=== PATIENT | female | born 1945 | race Caucasian/White ===

== ENCOUNTER → 2021-07-26 | Outpatient (CLI) | payer MEDICARE ==
[~2021-07-26] MED LIST: IBUPROFEN400 MG PO
== END ==
LOC: MRI 07-25 11:00
DX: M79.89 Other specified soft tissue disorders (principal); R22.42 Localized swelling, mass and lump, left lower limb
CPT/HCPCS: 36415; 73720; 82565; A9577

== ENCOUNTER → 2021-11-11 | Outpatient (CLI) | payer MEDICARE ==
[~2021-11-11] VITALS: Ht 167.6 cm; Wt 63.5 kg
== END ==
LOC: EROP 11:36
DX: Z23 Encounter for immunization (principal); U07.1 COVID-19
CPT/HCPCS: M0247; Q0247

== ENCOUNTER → 2022-04-17 | Outpatient (CLI) | payer MEDICARE | LOC: MRI 04-14 11:00 | DX: D21.9 Benign neoplasm of connective and other soft tissue, unspecified (principal); R22.42 Localized swelling, mass and lump, left lower limb | CPT/HCPCS: 36415; 73720; 82565; 84520; A9577 ==